=== PATIENT | female | born 1995 | race African-American/Black ===

== ENCOUNTER 2019-01-31 20:13 | Emergency (ER) | payer BC, MEDICAID ==
[~2019-01-31] VITALS: Ht 165.1 cm; Wt 54.4 kg
[2019-01-31] MEDS ORDERED: NAPROXEN 500 MG TABLET PO STA (20:27)
[2019-01-31 20:30] VITALS: BP 104/60
[2019-01-31] MEDS ORDERED: NAPR-514 PO (21:40)
--- NOTE | 2019-01-31 21:40 | PHYS DOC ---
Past Medical History Past Medical History: No Pertinent History (MELISSA SINGLETARY APRN) Past Surgical History: No Surgical History (MELISSA SINGLETARY APRN) Alcohol Use: None Drug Use: Marijuana (MELISSA SINGLETARY APRN) Adult General Chief Complaint Chief Complaint: WRIST PAIN HPI HPI Patient is a 23 year old AA female who presents to the ER with complaints of left wrist pain after tripping and falling down 5 steps at home. She denies any head injury, LOC, nausea, vomiting, neck, back, or leg pain. Pt currently rates pain a 5/10 and states she has not taken anything for pain relief prior to arrival. (MELISSA SINGLETARY APRN) Review of Systems Review of Systems Constitutional: Denies fever or chills [] Eyes: Denies change in visual acuity Musculoskeletal: Denies back pain, see HPI Integument: Denies rash or skin lesions [] Neurologic: Denies headache, focal weakness or sensory changes [] (MELISSA SINGLETARY APRN) Current Medications Current Medications Current Medications Medications (Trade) Dose Ordered Sig/Adore Start Time Stop Time Status Last Admin Dose Admin Naproxen (Naprosyn) 500 mg 1X STAT 01/31/19 20:27 01/31/19 20:37 DC 01/31/19 20:38 500 MG (NEYDA GUEVARA DO) Allergies Allergies Allergies Coded Allergies Type Severity Reaction Last Updated Verified No Known Drug Allergies 08/26/13 No (NEYDA GUEVARA DO) Physical Exam Physical Exam Constitutional: Well developed, well nourished, no acute distress, non-toxic appearance. [] HENT: Normocephalic, atraumatic, bilateral external ears normal, nose normal. [] Eyes: conjunctiva normal, no discharge. [] Neck: Normal range of motion, no stridor. [] Cardiovascular:Heart rate regular rhythm Lungs & Thorax: Respirations even and unlabored, no retractions, no respiratory distress Skin: Warm, dry, no erythema, no rash. [] Extremities: No cyanosis, no clubbing, ROM intact, no edema; L medial wrist and L thumb TTP, no deformity, no swelling, ROM intact. [] Neurologic: Alert and oriented X 3, normal motor function, normal sensory function, no focal deficits noted. [] Psychologic: Affect normal, judgement normal, mood normal. [] (MELISSA SINGLETARY APRN) Current Patient Data Vital Signs Vital Signs Date Time Temp Pulse Resp B/P (MAP) Pulse Ox O2 Delivery O2 Flow Rate FiO2 01/31/19 20:30 99.0 65 18 104/60 (75) 98 Room Air 99.0 (GUEVARA,NEYDA Durand DO) EKG EKG [] (MELISSA SINGLETARY APRN) Radiology/Procedures Radiology/Procedures PROCEDURE: WRIST 3V LEFT EXAM: WRIST 3V LEFT. HISTORY: Left wrist pain after a fall. COMPARISON: None. FINDINGS: No fractures are identified. Joint spaces and alignment are maintained. IMPRESSION: 1. No fracture.[] (MELISSA SINGLETARY APRN) Course & Med Decision Making Course & Med Decision Making Pertinent Labs and Imaging studies reviewed. (See chart for details) dx: L wrist pain, L wrist injury X-ray negative for acute findings or fracture. Pt placed in velcro wrist splint. Naproxen given in ER. Follow up with Dr. Delgado if sx persist Rx for Naproxen. Return to ER if sx worsen Patient verbalized an understanding of home care, medications, follow-up, and re turn to ED instructions and was in agreement with the plan of care. [] (MELISSA SINGLETARY APRN) Dragon Disclaimer Dragon Disclaimer This electronic medical record was generated, in whole or in part, using a voice recognition dictation system. (MELISSA SINGLETARY APRN) Departure Departure Impression: Primary Impression: Acute pain of left wrist Additional Impression: Injury of left wrist Disposition: HOME, SELF-CARE Condition: STABLE Referrals: NO PCP (PCP) ROSMERY DELGADO MD Patient Instructions: Wrist Pain, [id number], Wrist Splint, [id number] Additional Instructions: Fill prescription(s) and use as directed. Recommend application of ice, elevation, and rest of affected extremity. Wear the splint that was placed until follow up appointment. Return to the ER if your symptoms worsen. Scripts Naproxen (NAPROXEN) 500 Mg Tablet 1 TAB PO BID PRN for PAIN for 10 Days, #20 TAB 0 Refills Prov: MELISSA SINLGETARY APRN 6/15/19 Attending Signature Attending Signature I have reviewed the PA/PIGMENT MAKING SUPERVISOR's note and plan of care. I was available for consultation as needed during the patient's visit in the emergency department. I agree with the clinical impression, plan, and disposition. (NEYDA GUEVARA DO) Problem Qualifiers Additional Impression: Injury of left wrist Encounter type: initial encounter Qualified Codes: S69.92XA - Unspecified injury of left wrist, hand and finger(s), initial encounter MELISSA SINGLETARY APRN Jan 31, 2019 21:40 NEYDA GUEVARA DO Feb 01, 2019 04:52
--- NOTE | 2019-01-31 21:51 | RAD ---
EXAM: WRIST 3V LEFT. HISTORY: Left wrist pain after a fall. COMPARISON: None. FINDINGS: No fractures are identified. Joint spaces and alignment are maintained. IMPRESSION: 1. No fracture. Electronically signed by: Lily Alfaro MD (01/31/2019 9:48 PM) [facility]
== END 2019-01-31 21:46 | disposition home or self-care (01) ==
LOC: ER 20:13
DX: S69.92XA Unspecified injury of left wrist, hand and finger(s), initial encounter (principal); W10.8XXA Fall (on) (from) other stairs and steps, initial encounter; Y93.89 Activity, other specified; Y92.098 Other place in other non-institutional residence as the place of occurrence of the external cause; Y99.8 Other external cause status
CPT/HCPCS: 29125; 73110; 99284-25